=== PATIENT | female | born 1965 | race American Indian/Alaskan Native ===

== ENCOUNTER 2020-01-03 14:54 | Emergency (ER) | payer SELFPAY ==
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
--- NOTE | 2020-01-03 16:10 | XRay Report ---
CHEST 2 VIEWS INDICATION: sob. COMPARISON: None FINDINGS: Support devices: None. Heart: Within normal limits. Lungs: No acute air space or interstitial disease. Pleura: No significant pleural effusion. No pneumothorax. Additional findings: None. IMPRESSION: 1. No acute findings. Signer Name: Jame Iraheta MD Signed: 01/03/2020 4:05 PM Workstation Name: [id number]
== END 2020-01-03 16:29 | disposition home or self-care (01) ==
LOC: ED 14:54
DX: R07.0 Pain in throat (principal); Z00.00 Encounter for general adult medical examination without abnormal findings
CPT/HCPCS: 71046

== ENCOUNTER 2022-05-04 07:53 | Emergency (ER) | payer OTHER ==
[2022-05-04 11:51] VITALS: BP 168/99
== END 2022-05-04 12:15 | disposition left against medical advice (07) ==
LOC: ED 07:53
DX: I10 Essential (primary) hypertension (principal); Z53.21 Procedure and treatment not carried out due to patient leaving prior to being seen by health care provider